=== PATIENT | female | born 1975 | race Caucasian/White ===

== ENCOUNTER 2017-02-14 17:34 | Emergency (ER) | payer OTHER ==
[2017-02-14 17:45] VITALS: BP 124/78; PULSE 115; RESP 18; TEMP 98.6
[2017-02-14] MEDS ORDERED: predniSONE 50 MG TAB PO STA (17:57)
--- NOTE | 2017-02-14 17:57 | ED ---
General Adult HPI - General Chief complaint: Dental/Oral Stated complaint: tooth abcess Time Seen by Provider: 02/14/17 17:43 Source: patient Mode of arrival: ambulatory Limitations: no limitations - History of Present Illness Initial comments: 41-year-old female patient presents to emergency department today for evaluation of possible medication reaction. Patient states that today she developed some non-pruritic bumps to the back of her neck, and her left hand. Patient states that she also is having some right eye swelling. Patient denies any throat swelling, difficulty swallowing, shortness of breath, or wheezing. Patient denies any headache, neck pain, abdominal pain, nausea, vomiting, weakness, dizziness, fever, or chills. She denies any blurred vision, double vision, eye drainage, or itchiness. Patient is being treated with clindamycin which she got yesterday morning for a dental abscess. Patient states she has never taken this medication before. Patient states that the swelling in her face has improved some. Again she denies any fever or chills. - Related Data Previous Rx's Medication Instructions Recorded Amoxicillin/Potassium Clav 1 tab PO Q12HR #20 tab 02/14/17 [Augmentin 875-125 Tablet] predniSONE 50 mg PO DAILY #4 tab 02/14/17 Allergies Allergy/AdvReac Type Severity Reaction Status Date / Time No Known Allergies Allergy Verified 02/14/17 17:45 Review of Systems ROS Statement: Those systems with pertinent positive or pertinent negative responses have been documented in the HPI. ROS Other: All systems not noted in ROS Statement are negative. Past Medical History Past Medical History: No Reported History History of Any Multi-Drug Resistant Organisms: None Reported Past Surgical History: No Surgical Hx Reported Past Psychological History: No Psychological Hx Reported Smoking Status: Current every day smoker Past Alcohol Use History: Occasional Past Drug Use History: None Reported General Exam Limitations: no limitations Head exam: Present: atraumatic, normocephalic, normal inspection Eye exam: Present: normal appearance, PERRL, EOMI, periorbital swelling (Mild periorbital swelling.), other (No drainage noted). Absent: scleral icterus, conjunctival injection Pupils: Present: normal accommodation ENT exam: Present: normal exam, normal oropharynx, mucous membranes moist Neck exam: Present: normal inspection, other (Urticaria noted to the hairline on the left side of the neck.). Absent: tenderness, meningismus, lymphadenopathy Respiratory exam: Present: normal lung sounds bilaterally. Absent: respiratory distress, wheezes, rales, rhonchi, stridor Cardiovascular Exam: Present: regular rate, normal rhythm, normal heart sounds. Absent: systolic murmur, diastolic murmur, rubs, gallop, clicks GI/Abdominal exam: Present: soft, normal bowel sounds. Absent: distended, tenderness, guarding, rebound, rigid Extremities exam: Present: normal inspection, full ROM, normal capillary refill , other (Left hand exhibits an area of swelling at the base of the thumb. Nonpruritic). Absent: tenderness, pedal edema, joint swelling, calf tenderness Back exam: Present: normal inspection Neurological exam: Present: alert, oriented X3, CN II-XII intact Psychiatric exam: Present: normal affect, normal mood Skin exam: Present: warm, dry, intact, normal color. Absent: rash Course Vital Signs 02/14/17 17:42 Temperature 98.6 F Pulse Rate 115 H Respiratory 18 Rate Blood Pressure 124/78 O2 Sat by Pulse 99 Oximetry Medical Decision Making - Medical Decision Making 41-year-old female patient presented to the emergency department today for evaluation for possible medication reaction. Patient had a lesion to her neck and her hand that didn't appear to be urticarial in nature. The patient did deny itching. Patient also had some mild swelling to the right periorbital area. Patient was not having any trouble with breathing or throat swelling. It is felt this time patient may be having a reaction to the clindamycin as she has never taken it before. Patient will be changed from clindamycin to Augmentin to cover her dental abscess. Patient will be given a short course of steroids. Instructed patient to follow up with her primary care physician for recheck in one to 2 days. Patient instructed to return for any new, worsening, or concerning symptoms. Disposition Clinical Impression: Dental abscess, Medication reaction Disposition: HOME SELF-CARE Condition: Good Instructions: Dental Abscess (ED), Antibiotic Medication Allergy (ED) Additional Instructions: Take steroids until complete. Stop clindamycin.*Incomplete Augmentin prescription. Follow up with primary care physician in one to 2 days for recheck. Return for any new, worsening, or concerning symptoms. Prescriptions: Amoxicillin/Potassium Clav [Augmentin 875-125 Tablet] 1 tab PO Q12HR #20 tab predniSONE 50 mg PO DAILY #4 tab Referrals: Nonstaff,Physician [Primary Care Provider] - 1-2 days Time of Disposition: 17:56
== END 2017-02-14 18:10 | disposition home or self-care (01) ==
LOC: EC 17:34
DX: K04.7 Periapical abscess without sinus (principal); T36.8X5A Adverse effect of other systemic antibiotics, initial encounter; F17.200 Nicotine dependence, unspecified, uncomplicated
CPT/HCPCS: 99282; J7512